=== PATIENT | female | born 1970 | race African-American/Black ===

== ENCOUNTER 2016-12-31 15:08 | Emergency (ER) | payer OTHER ==
[~2016-12-31] VITALS: Ht 167.6 cm; Wt 80.0 kg
[~2016-12-31 15:08] MED LIST: DARV PO; PREN0.01 PO
[2016-12-31 15:10] VITALS: BP 146/78; PULSE 97; RESP 17; TEMP 97.6; O2SAT 99
--- NOTE | 2016-12-31 15:14 | PD ---
Physical Exam Time Seen by Provider: 15:13 Narrative 46 y/o female on amoxicillin for 4 days presents with dizziness, nausea, chills which started today. Concerned about adverse reaction to amoxicillin. Vital signs reviewed. Seen at triage desk. Awaiting bed placement. Data Data Last Documented VS Vital Signs Date Time Temp Pulse Resp B/P Pulse Ox O2 Delivery O2 Flow Rate FiO2 12/31/16 15:10 97.6 97 17 146/78 99 MDM Medical Record Reviewed: Yes Supervised Visit with EVIN: Abner Mccormack December 31, 2016 15:14
[2016-12-31] MEDS ORDERED: SODIUM CHLOR 0.9% 1000 ML INJ 1,000 ML IV SCH (15:40)
[2016-12-31] MEDS ORDERED: ONDANSETRON HCL 4 MG/2 ML VIAL IVP ONE (15:45)
[2016-12-31] MEDS ORDERED: SODIUM CHLORIDE 0.9% FLUSH 10 ML FLUSH IV FLUSH PRN (15:45)
--- NOTE | 2016-12-31 16:36 | PD ---
HPI Chief Complaint: Allergic/Adverse Reaction Time Seen by Provider: 15:30 Travel History International Travel<30 days: No Contact w/Intl Traveler<30days: No Traveled to known affect area: No History of Present Illness HPI Patient is a 46-year-old female presenting to the emergency department for evaluation of nausea, lightheadedness. Patient states that she started feeling dizzy and nauseated at about 12 PM this afternoon. She took a dose of amoxicillin shortly before that time. He is on amoxicillin due to a tooth infection. She's been taking it since Thursday with no problem until today. Patient is no previous allergy to penicillin. Patient currently feels as if the room is spinning, it's worse with head movement. She took BC powder which did not alleviate her symptoms. She denies any chest pain, shortness of breath , vomiting, fevers, chills, headache. She does report abdominal distention and irregular bowel movements. This is normal for her. Patient's last menstrual cycle was less than 1 week ago. FOR[facility]LY [facility], LATER [facility] Past Medical History Medical History: Denies Significant Hx ?: Not LMP: 12/28/2016 Past Surgical History Surgical History: No Previous Surgery Family History Family History: Negative Social History Alcohol Use: No Tobacco Use: No Substance Use: No Allergies-Medications (Allergen,Severity, Reaction): Coded Allergies: Amoxicillin (Verified Allergy, Severe, DIZZY, 12/31/16) Reported Meds & Prescriptions Reported Meds & Active Scripts Active No Active Prescriptions or Reported Medications Review of Systems Except as stated in HPI: all other systems reviewed are Neg HENT: Positive: Lightheadedness Gastrointestinal: Positive: Nausea, No: Vomiting, Diarrhea, Abdominal Pain Musculoskeletal: No: Myalgias Neurologic: Positive: Dizziness Physical Exam Narrative GENERAL: Well-developed, well-nourished, alert female. SKIN: Focused skin assessment warm/dry. HEAD: Atraumatic. Normocephalic. EYES: Pupils equal and round. No scleral icterus. No injection or drainage. ENT: No nasal bleeding or discharge. Mucous membranes pink and moist. NECK: Trachea midline. No JVD. CARDIOVASCULAR: Regular rate and rhythm. No murmur appreciated. RESPIRATORY: No accessory muscle use. Clear to auscultation. Breath sounds equal bilaterally. GASTROINTESTINAL: Abdomen soft, mildly tender to palpation epigastric region, nondistended. Hepatic and splenic margins not palpable. MUSCULOSKELETAL: No obvious deformities. No clubbing. No cyanosis. No edema. NEUROLOGICAL: Awake and alert. No obvious cranial nerve deficits. Motor grossly within normal limits. Normal speech. PSYCHIATRIC: Appropriate mood and affect; insight and judgment normal. Data Data Last Documented VS Vital Signs Date Time Temp Pulse Resp B/P Pulse Ox O2 Delivery O2 Flow Rate FiO2 12/31/16 17:46 80 17 132/80 100 12/31/16 16:45 Room Air 12/31/16 15:10 97.6 Orders Electrocardiogram (12/31/16 ) Complete Blood Count With Diff (12/31/16 15:40) Comprehensive Metabolic Panel (12/31/16 15:40) Lipase (12/31/16 15:40) Urinalysis - C+S If Indicated (12/31/16 15:40) Iv Access Insert/Monitor (12/31/16 15:40) Ecg Monitoring (12/31/16 15:40) Oximetry (12/31/16 15:40) Ondansetron Inj (Zofran Inj) (12/31/16 15:45) Sodium Chlor 0.9% 1000 Ml Inj (Ns 1000 M (12/31/16 15:40) Sodium Chloride 0.9% Flush (Ns Flush) (12/31/16 15:45) Labs Laboratory Tests Test 12/31/16 12/31/16 16:20 16:46 White Blood Count 9.0 TH/MM3 Red Blood Count 4.07 MIL/MM3 Hemoglobin 12.8 GM/DL Hematocrit 37.4 % Mean Corpuscular Volume 91.8 FL Mean Corpuscular Hemoglobin 31.6 PG Mean Corpuscular Hemoglobin 34.4 % Concent Red Cell Distribution Width 12.8 % Platelet Count 275 TH/MM3 Mean Platelet Volume 8.5 FL Neutrophils (%) (Auto) 83.9 % Lymphocytes (%) (Auto) 11.8 % Monocytes (%) (Auto) 3.0 % Eosinophils (%) (Auto) 0.6 % Basophils (%) (Auto) 0.7 % Neutrophils # (Auto) 7.5 TH/MM3 Lymphocytes # (Auto) 1.1 TH/MM3 Monocytes # (Auto) 0.3 TH/MM3 Eosinophils # (Auto) 0.1 TH/MM3 Basophils # (Auto) 0.1 TH/MM3 CBC Comment AUTO DIFF Differential Comment AUTO DIFF CONFIRMED Sodium Level 139 MEQ/L Potassium Level 4.5 MEQ/L Chloride Level 105 MEQ/L Carbon Dioxide Level 26.2 MEQ/L Anion Gap 8 MEQ/L Blood Urea Nitrogen 10 MG/DL Creatinine 0.87 MG/DL Estimat Glomerular Filtration 86 ML/MIN Rate Random Glucose 100 MG/DL Calcium Level 9.1 MG/DL Total Bilirubin 0.4 MG/DL Aspartate Amino Transf 22 U/L (AST/SGOT) Alanine Aminotransferase 18 U/L (ALT/SGPT) Alkaline Phosphatase 48 U/L Total Protein 7.7 GM/DL Albumin 3.9 GM/DL Lipase 85 U/L Urine Color LIGHT-YELLOW Urine Turbidity CLEAR Urine pH 8.0 Urine Specific Aubrey 1.009 Urine Protein NEG mg/dL Urine Glucose (UA) NEG mg/dL Urine Ketones 10 mg/dL Urine Occult Blood NEG Urine Nitrite NEG Urine Bilirubin NEG Urine Urobilinogen LESS THAN 2.0 MG/DL Urine Leukocyte Esterase NEG Urine RBC 2 /hpf Urine WBC 4 /hpf Urine Squamous Epithelial 5 /hpf Cells Microscopic Urinalysis Comment CULT NOT INDICATED MDM Medical Decision Making Medical Screen Exam Complete: Yes Emergency Medical Condition: Yes Interpretation(s) Vital Signs Date Time Temp Pulse Resp B/P Pulse Ox O2 Delivery O2 Flow Rate FiO2 12/31/16 15:10 97.6 97 17 146/78 99 Differential Diagnosis Vital Signs Date Time Temp Pulse Resp B/P 100 12/31/16 16:45 100 Room Air 12/31/16 15:10 97.6 97 17 146/78 99 Laboratory Tests Test 12/31/16 12/31/16 16:20 16:46 White Blood Count 9.0 TH/MM3 Red Blood Count 4.07 MIL/MM3 Hemoglobin 12.8 GM/DL Hematocrit 37.4 % Mean Corpuscular Volume 91.8 FL Mean Corpuscular Hemoglobin 31.6 PG Mean Corpuscular Hemoglobin 34.4 % Concent Red Cell Distribution Width 12.8 % Platelet Count 275 TH/MM3 Mean Platelet Volume 8.5 FL Neutrophils (%) (Auto) 83.9 % Lymphocytes (%) (Auto) 11.8 % Monocytes (%) (Auto) 3.0 % Eosinophils (%) (Auto) 0.6 % Basophils (%) (Auto) 0.7 % Neutrophils # (Auto) 7.5 TH/MM3 Lymphocytes # (Auto) 1.1 TH/MM3 Monocytes # (Auto) 0.3 TH/MM3 Eosinophils # (Auto) 0.1 TH/MM3 Basophils # (Auto) 0.1 TH/MM3 CBC Comment AUTO DIFF Differential Comment AUTO DIFF CONFIRMED Sodium Level 139 MEQ/L Potassium Level 4.5 MEQ/L Chloride Level 105 MEQ/L Carbon Dioxide Level 26.2 MEQ/L Anion Gap 8 MEQ/L Blood Urea Nitrogen 10 MG/DL Creatinine 0.87 MG/DL Estimat Glomerular Filtration 86 ML/MIN Rate Random Glucose 100 MG/DL Calcium Level 9.1 MG/DL Total Bilirubin 0.4 MG/DL Aspartate Amino Transf 22 U/L (AST/SGOT) Alanine Aminotransferase 18 U/L (ALT/SGPT) Alkaline Phosphatase 48 U/L Total Protein 7.7 GM/DL Albumin 3.9 GM/DL Lipase 85 U/L Urine Color LIGHT-YELLOW Urine Turbidity CLEAR Urine pH 8.0 Urine Specific Aubrey 1.009 Urine Protein NEG mg/dL Urine Glucose (UA) NEG mg/dL Urine Ketones 10 mg/dL Urine Occult Blood NEG Urine Nitrite NEG Urine Bilirubin NEG Urine Urobilinogen LESS THAN 2.0 MG/DL Urine Leukocyte Esterase NEG Urine RBC 2 /hpf Urine WBC 4 /hpf Urine Squamous Epithelial 5 /hpf Cells Microscopic Urinalysis Comment CULT NOT INDICATED Gastroenteritis versus cholecystitis versus pancreatitis versus allergic reaction versus medication side effect Narrative Course Patient's a 46-year-old female presenting to the emergency department for evaluation of dizziness, nausea. Symptoms started after she took her second dose of amoxicillin for the day at approximately noon. Patient's vital signs are stable, labs ordered pending. IV access initiated, patient placed on telemetry monitoring and continuous pulse oximetry. Patient given IV fluids and Zofran. CBC is unremarkable Chemistry is unremarkable Urinalysis is unremarkable She will discontinue use of amoxicillin at this time. Discussed with patient that she would need another antibiotic to cover her dental infection. Patient declined antibiotics at this time, she states that she will wait to see her primary care provider tomorrow. She reports feeling better after medications and IV fluids. She is able to ambulate safely. Patient appointment with her primary care provider tomorrow 1 PM. She is encouraged to keep this appointment. Patient was given meclizine and Zofran for use at home. She is advised to return to emergency department for any new or worsening symptoms. Patient has been verbalized understanding of discharge instructions. Patient is stable for discharge. Diagnosis Primary Impression: Dizziness Additional Impression: Nausea Referrals: Primary Care Physician 1 day Patient Instructions: Dizziness (ED), General Instructions Additional Instructions: Follow-up with her primary care provider tomorrow as scheduled Take medication as directed Return to emergency department immediately for any new or worsening symptoms Med/Other Pt SpecificInfo: Prescription(s) given Scripts Ondansetron Odt (Zofran Odt)4 Mg Tab4 Mg SL Q6HR PRN (Nausea/Vomiting) 5 Days Ref 0 Prov:Saira Prado 12/31/16 Meclizine 25 Mg Tab25 Mg PO TID PRN (VERTIGO) 7 Days Ref 0 Prov:Saira Prado 12/31/16 Disposition: 01 DISCHARGE HOME Condition: Stable Saira Prado December 31, 2016 16:35
[2016-12-31 16:43] LABS: AUTOMATED NEUTROPHIL # 7.5 TH/MM3 (1.8-7.7); BASOPHIL # 0.1 TH/MM3 (0-0.2); BASOPHIL % 0.7 % (0.0-2.0); EOSINOPHIL # 0.1 TH/MM3 (0-0.4); EOSINOPHIL % 0.6 % (0.0-4.0); HEMATOCRIT 37.4 % (35.0-46.0); LYMPH % 11.8 % (9.0-44.0); LYMPHOCYTE # 1.1 TH/MM3 (1.0-4.8); MEAN CELL VOLUME 91.8 FL (80.0-100.0); MEAN CORPUSCULAR HEMOGLOBIN 31.6 PG (27.0-34.0); MEAN CORPUSCULAR HGB CONC 34.4 % (32.0-36.0); NEUT % 83.9 % (16.0-70.0); PLATELET COUNT 275 TH/MM3 (150-450); RED BLOOD COUNT 4.07 MIL/MM3 (4.00-5.30); RED CELL DISTRIBUTION WIDTH 12.8 % (11.6-17.2)
[2016-12-31 16:45] VITALS: O2SAT 100
[2016-12-31 17:03] LABS: ALKALINE PHOSPHATASE 48 U/L (45-117); TOTAL BILIRUBIN ADULT 0.4 MG/DL (0.2-1.0)
[2016-12-31 17:06] LABS: ALT (GPT) 18 U/L (10-53); ANION GAP 8 MEQ/L (5-15); AST (GOT) 22 U/L (15-37); BICARBONATE 26.2 MEQ/L (21.0-32.0); BLOOD UREA NITROGEN 10 MG/DL (7-18); CHLORIDE 105 MEQ/L (98-107); GLOMERULAR FILTRATION RATE 86 ML/MIN (>89); POTASSIUM 4.5 MEQ/L (3.5-5.1); SODIUM (NA) 139 MEQ/L (136-145)
[2016-12-31 17:08] LABS: HEMO FLAGS AUTO DIFF
[2016-12-31 17:46] VITALS: BP 132/80; PULSE 80; RESP 17; O2SAT 100
[2016-12-31 17:57] LABS: BLOOD, URINE NEG (NEG); COMMENT (UR) CULT NOT INDICATED; CULTURE IF INDICATED CULT NOT INDICATED; GLUCOSE,URINE NEG (NEG); KETONE, URINE 10 mg/dL (NEG); NITRITE,URINE NEG (NEG); SQUAMOUS EPITHELIAL CELL URINE 5 /hpf (0-5); URINE COLOR LIGHT-YELLOW (YELLW/STRAW)
[2016-12-31 18:06] LABS: SCAN/DIFF AUTO DIFF CONFIRMED
[2016-12-31] MEDS ORDERED: MECL-62 PO (18:23)
[2016-12-31] MEDS ORDERED: ZOFR4TAB3 SL (18:23)
--- NOTE | 2017-01-01 18:43 | EKG ---
Date Performed: 12/31/2016 Time Performed: 16:10:50 PTAGE: 46 years EKG: Sinus rhythm WITH SINUS ARRHYTHMIA NORMAL ECG NO PREVIOUS TRACING DOCTOR: Vahid Santoyo Interpretating Date/Time 01/01/2017 18:42:31
== END 2016-12-31 18:52 | disposition home or self-care (01) ==
LOC: NEPD 15:08
DX: R42 Dizziness and giddiness (principal); R11.0 Nausea; R14.0 Abdominal distension (gaseous)
CPT/HCPCS: 80053; 81001; 83690; 85025; 93005; 96374; 99284; J2405; J7030